=== PATIENT | female | born 1970 | race Hispanic/Latino ===

== ENCOUNTER 2018-02-06 15:47 | Emergency (ER) | payer OTHER ==
[2018-02-06 15:52] VITALS: BP 151/89; PULSE 115; RESP 22; TEMP 97.6; O2SAT 98
--- NOTE | 2018-02-06 16:10 | C.PDOC ---
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 Notes she was referred by PMD Dr. Altamirano to have I&D. Patient states her PMD has not prescribed her antibiotics, and he has not seen this wound recently. She reports history of hydradenitis suppurativa, but denies a history of axillary wounds. PMD: Dr. Altamirano Time Seen by Provider: 02/06/18 15:58 Chief Complaint (Nursing): Abnormal Skin Integrity History Per: Patient History/Exam Limitations: no limitations Onset/Duration Of Symptoms: Waxing/Waning Current Symptoms Are (Timing): Worse Quality Of Symptoms: Painful Past Medical History Reviewed: Historical Data, Nursing Documentation, Vital Signs Vital Signs: Last Vital Signs Temp 97.6 F 02/06/18 15:48 Pulse 115 H 02/06/18 15:48 Resp 22 02/06/18 15:48 BP 151/89 H 02/06/18 15:48 Pulse Ox 98 02/06/18 17:09 - Medical History PMH: Asthma, Diabetes Other Surgeries: Right elbow surgery Family History: States: No Known Family Hx - Social History Hx Tobacco Use: No Hx Alcohol Use: No Hx Substance Use: No Review Of Systems Except As Marked, All Systems Reviewed And Found Negative. Constitutional: Negative for: Fever, Chills Skin: Positive for: Other (Painful area to right lower abdomen, + swelling) Physical Exam - Physical Exam Appears: In Acute Distress (moderate painful distress), Other (Morbidly obese) Skin: Normal Color, Warm, Dry Head: Atraumatic, Normacephalic Eye(s): bilateral: Other (Pupillary mydriasis) Oral Mucosa: Moist Neck: Normal ROM, Supple Chest: Symmetrical Cardiovascular: Rhythm Regular, No Murmur Respiratory: Normal Breath Sounds, No Accessory Muscle Use Gastrointestinal/Abdominal: Other (Huge abdominal panniculus: Small area of dense cellulitis and scarring at the midline abdomen in the pannicular fold. The 7 oclock position is noted with scant dried discharge, approximately 3x5 cm. Mild central softness without fluctuance) Extremity: Bilateral: Atraumatic, Normal ROM Neurological/Psych: Oriented x3, Normal Speech Gait: Steady Additional Physical Exam Comments: BRANDY Carballo at bedside to body mechanic examination ED Course And Treatment O2 Sat by Pulse Oximetry: 98 (RA) Pulse Ox Interpretation: Normal Medical Decision Making Medical Decision Making: Initial Impression: chronic wound, drained small area of cellulitis 3x5 cm with dense cellulitis but no fluctuance to drain. Small drain hole @ 7 o'clock position shows recent drainage. Plan: Pt offered pain meds and antibiotics but refused both Pt did not note axillary hydradenitis wounds which is more c/w panniculitis (in belly fold) than hydradenitis suppurativa. Pt agressive and argumentative, seeking retribution, letegious- threatening to tova this hospital for "refusing treatment". pt assures she has enough pain meds "38 Vicodin" at home. but did not take any today for unclear reason, "because I will get IV antibiotics here" Pt claims she has had this drained "many times" usually after US eval, but cannot/will not say when nor where. Pt demanding I&D and drainage but no drainable wound, offered US eval of wound after pain meds but pt refused. PMD- Dr Altamirano- who referred her to our ED "has not seen this wound" but knows me well. 1620: called Dr. Altamirano's office- [phone] (pulled form [facility] report), referred to [phone] connected to answering service and left ms to call back. [facility] shows 3 rx's from 05/13 to 01/08/18 for Vicodin 10/325, # 60, #60, #40. Pt with apparent chronic pain issues (will d/w Dr. Altamirano). Pt pupilary mydriasis, aggressive behavior and immediately apparently pain-free behavior and stomping from the ED when not given what she claims her MD referred her for, and not taking pain meds she "has at home" for 08/06 pain is suspicious that patient has run out pain meds and narcotics withdrawal and drug seeking behavior. Prior records reviewed: Pt's similar presentation @ our sister [facility] in [place] 12/29/17 where pt demanding IV narcotics, letigious and threatening then had both CT of ABD/ Pelvis without acute finding except moderate stool c/w constipation (perhaps from chronic narcotics use) as well as US of GB with no sig findings is again suggestive of malingering and drug seeking behavior. Given dilaudid 0.5 mg x 2 doses without apparent pathology, though would seem to only make constipation issues worse. Pt DID have Abd US 12/29/17 @ [facility] ED but NOT of the then non-existing pannicular wound (not noted on CT scan 12/29/17), as she claimed today. Suggesting the pt confabulates for secondary gain (drug seeking or Munchausen's) or poor insight, or underlying psychiatric illness. 16:13 Pt became very upset and eloped from the ER. Refused ultrasound, pain meds, and antibiotics. Disposition Doctor Will See Patient In The: Office Counseled Patient/Family Regarding: Studies Performed, Diagnosis - Disposition Disposition: ELOPEMENT - ER ONLY Disposition Time: 16:13 Condition: GOOD Forms: [facility] (Urdu) - Clinical Impression Clinical Impression: Panniculitis, Drug-seeking behavior - Scribe Statement The provider has reviewed the documentation as recorded by the Angel Swanson Provider Attestation: All medical record entries made by the Angel were at my direction and personally dictated by me. I have reviewed the chart and agree that the record accurately reflects my personal performance of the history, physical exam, medical decision making, and the department course for this patient. I have also personally directed, reviewed, and agree with the discharge instructions and disposition.
== END 2018-02-06 16:56 | disposition left against medical advice (07) ==
LOC: C.ER 15:47
DX: M79.3 Panniculitis, unspecified (principal); Z76.5 Malingerer [conscious simulation]; E11.9 Type 2 diabetes mellitus without complications